=== PATIENT | female | born 1975 | race Caucasian/White ===

== ENCOUNTER 2017-03-19 20:00 | Emergency (ER) | payer OTHER ==
[~2017-03-19] VITALS: Ht 170.2 cm; Wt 97.7 kg
[2017-03-19 20:00] VITALS: Ht 170.2 cm; Wt 97.7 kg
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
== END 2017-03-19 20:13 ==
LOC: E/R 20:00
DX: F41.1 Generalized anxiety disorder (principal)
CPT/HCPCS: 99282